=== PATIENT | male | born 1970 | race Caucasian/White ===

== ENCOUNTER 2017-11-05 23:59 | Emergency (ER) | payer MEDICAID ==
[~2017-11-05] VITALS: Ht 182.9 cm; Wt 160.4 kg
[~2017-11-05 23:59] MED LIST: HYDR-565 PO; SUMA50TA PO
[2017-11-06 00:18] VITALS: BP 186/99
[2017-11-06] MEDS ORDERED: SULF1TAB49 PO (03:26)
[2017-11-06] MEDS ORDERED: CEPH500C5 PO (03:26)
[2017-11-06] MEDS ORDERED: HYDR-569 PO (03:26)
== END 2017-11-06 04:16 | disposition home or self-care (01) ==
LOC: ER 11-06
DX: L03.115 Cellulitis of right lower limb (principal); L97.819 Non-pressure chronic ulcer of other part of right lower leg with unspecified severity; F17.200 Nicotine dependence, unspecified, uncomplicated; Z98.890 Other specified postprocedural states
CPT/HCPCS: 87070; 87077; 87186; 99284; A6449

== ENCOUNTER 2018-10-13 12:59 | Emergency (ER) | payer MEDICAID ==
[~2018-10-13] VITALS: Ht 182.9 cm; Wt 163.6 kg
[~2018-10-13 12:59] MED LIST changes: +CEPH500C5 PO; +HYDR-4353 PO; +HYDR-4383 PO; -HYDR-565 PO
[2018-10-13 14:41] LABS: BASOPHILS # (AUTO) 0.1 X10'3 (0-0.2); BASOPHILS % (AUTO) 0.6 % (0-1); EOSINOPHILS % (AUTO) 0 % (0-6); HEMATOCRIT 40.5 % (42.0-52.0); HEMOGLOBIN 13.5 g/dl (14.0-17.9); LYMPHOCYTES # (AUTO) 0.9 X10'3 (1.1-4.8); MEAN CORPUSCULAR HEMOGLOBIN 26.3 PG (27.0-31.0); MEAN CORPUSCULAR HGB CONC 33.2 g/dL (33.0-36.5); MEAN CORPUSCULAR VOLUME 79.1 FL (78-98); MEAN PLATELET VOLUME 8.9 FL (7.4-10.4); MONOCYTES % (AUTO) 6.6 % (2-12); NEUTROPHILS # (AUTO) 12.8 X10'3 (1.8-7.7); NEUTROPHILS % (AUTO) 86.8 % (42-75); PLATELET COUNT 164 X10'3 (140-440); RED BLOOD COUNT 5.12 X10'6 (4.70-6.10); RED CELL DISTRIBUTION WIDTH 14.1 % (11.5-14.5); WHITE BLOOD COUNT 14.7 X10'3 (4.5-11.0)
[2018-10-13 14:57] LABS: ALANINE AMINOTRANSFERASE 23 U/L (12-78); ALBUMIN 3.2 G/DL (3.4-5.0); ALBUMIN/GLOBULIN RATIO 0.8 (1.1-1.5); ALKALINE PHOSPHATASE 72 IU/L (46-116); ANION GAP 7 (8-16); ASPARTATE AMINO TRANSFERASE 20 U/L (10-37); BILIRUBIN,TOTAL 0.9 MG/DL (0.1-1.0); BLOOD UREA NITROGEN 11 MG/DL (7-18); BUN/CREATININE RATIO 8.9 (5.4-32.0); CALCIUM 8.7 MG/DL (8.5-10.1); CHLORIDE 97 MMOL/L (99-107); CREATININE 1.23 MG/DL (0.60-1.10); GLUCOSE 90 MG/DL (70-104); POTASSIUM 3.9 MMOL/L (3.5-5.1); SODIUM 129 MMOL/L (135-145); TOTAL PROTEIN 7.4 G/DL (6.4-8.2); eGFR 64 ML/MIN
[2018-10-13] MEDS ORDERED: acetaminophen 325mg tablet PO ONE (15:20)
[2018-10-13 16:01] VITALS: BP 148/96
[2018-10-13] MEDS ORDERED: TETanus/Pertussis (Acell)/Diphther VAC/PF (Tdap-Adult) 0.5ml syringe IM ONE (16:35)
[2018-10-13] MEDS ORDERED: SULF1TAB49 PO (16:37)
[2018-10-13] MEDS ORDERED: CEPH-572 PO (16:37)
== END 2018-10-13 16:54 | disposition home or self-care (01) ==
LOC: ER 12:59
DX: L03.115 Cellulitis of right lower limb (principal); Z79.899 Other long term (current) drug therapy; Z98.890 Other specified postprocedural states
CPT/HCPCS: 36415; 80053; 85025; 90471; 90715; 99283